=== PATIENT | male | born 1960 | race Caucasian/White ===

== ENCOUNTER 2024-06-23 05:33 | Outpatient (CLI) | payer MEDICARE, OTHER | END 2024-06-23 23:59 | disposition home or self-care (01) | LOC: MRI02 05:33 | PROVIDERS: ATTEND Podiatrist Foot & Ankle Surgery | DX: M25.474 Effusion, right foot (principal); M25.374 Other instability, right foot; M20.41 Other hammer toe(s) (acquired), right foot; M79.671 Pain in right foot; R60.0 Localized edema | CPT/HCPCS: 73718 ==